=== PATIENT | female | born 1995 | race Caucasian/White ===

== ENCOUNTER 2017-03-27 14:03 | Emergency (ER) | payer OTHER ==
[~2017-03-27] VITALS: Ht 157.5 cm; Wt 55.1 kg
[2017-03-27 14:20] VITALS: TEMP 37.1; Ht 157.5 cm; Wt 55.1 kg
[2017-03-27] MEDS ORDERED: IBUPROFEN 600 MG TAB PO STA (14:49)
--- NOTE | 2017-03-27 15:38 | EMERGENCY ROOM VISIT NOTE ---
ED Visit Note First contact with patient: 14:30 CHIEF COMPLAINT: Head injury HISTORY OF PRESENT ILLNESS: This 21-year-old female presents to the emergency department with complaint of posterior head pain and swelling after a fall 2 days ago. Patient states that she was out drinking and had a ground-level fall secondary to losing her balance. She states that she fell backwards and hit the back of her head. Denies loss of consciousness. She complains of swelling and pain over the right posterior aspect of her scalp. She denies headaches, vision changes, nausea or vomiting, neck pain, dizziness or syncope, or any other injuries related to the fall. No difficulty with speech or memory loss. No loss of appetite or unusual behavior since the injury REVIEW OF SYSTEMS: GENERAL: No fever or chills, easy fatigue, loss of appetite, or significant weight change. NEUROLOGICAL: No headache, change in mental status, weakness, numbness, or dizziness. NECK: No neck pain, stiffness, or limitation of motion. EYES AND EARS: No change in vision, photophobia, pain , or change in hearing. PMH: The patient is healthy; there is no significant medical or surgical history. SOCIAL HISTORY: Patient is a [employer] student. She denies tobacco use, admits to occasional alcohol use, denies recreational drug use. PHYSICAL EXAM: Vital Signs: Reviewed Nurse's notes. The patient is alert, oriented, and coherent. Pupils are round, equal, and react briskly to light. EOMs are full and optic discs and fundi are normal. There is a mild contusion to the right posterior occiput, tender to palpation, no skull depression or crepitus. No abrasion or ecchymosis. Finger to nose testing is done well, Romberg is negative; there is no pronator drift. Tandem walking is done well. NECK: Supple, nontender, no lymphadenopathy. EMERGENCY DEPARTMENT COURSE: I examined the patient. Differential diagnosis includes abrasion, contusion, concussion, less likely skull fracture or intracranial hemorrhage. Patient's neurologic exam is completely normal. There is a small posterior scalp contusion. The patient was provided with an ice pack and ibuprofen, which she states improved her pain. The patient was instructed to follow up with her PCP in the next few days if her symptoms are not improving, she verbalized understanding. Patient was discharged home in stable condition and ambulatory. Current/Historical Medications No Active Prescriptions or Reported Meds Allergies Coded Allergies: No Known Allergies (Unverified , 03/27/17) Vital Signs Date Time Temp Pulse Resp B/P (MAP) Pulse Ox O2 Delivery O2 Flow Rate FiO2 03/27/17 15:50 77 16 122/78 99 03/27/17 14:20 37.1 91 16 127/81 100 Room Air Medications Administered Medications (Trade) Dose Ordered Sig/Gretchen Route Start Time Stop Time Status Last Admin Dose Admin Ibuprofen (Motrin Tab) 600 mg NOW STAT PO 03/27/17 14:49 03/27/17 14:51 DC 03/27/17 15:14 600 MG Departure Information Impression Primary Impression: Scalp contusion Dispostion Home / Self-Care Condition GOOD Prescriptions No Active Prescriptions or Reported Meds Referrals No Doctor, Assigned (PCP) Forms HOME CARE DOCUMENTATION FORM, IMPORTANT VISIT INFORMATION Patient Instructions ED Contusion Scalp, [facility] Additional Instructions You have a contusion on your scalp. For pain control, you can use the following [id number] medicines (if >12 yo): - Regular strength (325mg/tab) Tylenol (acetaminophen) 2 tabs every 4-6 hours as needed. Do not exceed 10 tablets in a 24 hour period. Avoid taking more than 3000 mg of Tylenol per day. This includes any other sources of acetaminophen you may take on a regular basis. - Regular strength (200 mg/tab) Advil (ibuprofen) 2 tabs every 4-6 hours as needed. Do not exceed a dose of 2400 mg per day. Apply ice to the swollen, painful area for the next 1-2 days to help reduce swelling and discomfort. Follow-up with your PCP in the next few days to be rechecked. Please return to the ER for any worsening symptoms, including severe headache, persistent vomiting, vision changes, confusion, numbness or weakness on one side of the body, balance issues or difficulty walking, or any other concerns. Problem Qualifiers Primary Impression: Scalp contusion Encounter type: initial encounter Qualified Codes: S00.03XA - Contusion of scalp, initial encounter
[2017-03-27 15:50] VITALS: BP 122/78; PULSE 77; O2SAT 99
== END 2017-03-27 16:20 | disposition home or self-care (01) ==
LOC: C.EDB 14:04 → C.EDD 16:20
DX: S00.03XA Contusion of scalp, initial encounter (principal); W19.XXXA Unspecified fall, initial encounter; W22.09XA Striking against other stationary object, initial encounter